=== PATIENT | female | born 1975 | race Caucasian/White ===

== ENCOUNTER 2023-01-29 07:46 | Emergency (ER) | payer SELFPAY ==
[2023-01-29] MEDS ORDERED: MINERAL OIL ENEMA 133 ML ENEMA RC ONE (08:08)
[2023-01-29 08:10] VITALS: BP 132/90; PULSE 64; RESP 18; TEMP 99.4; BMI 29.4
[2023-01-29] MEDS ORDERED: POLYETHYLENE GLYCOL (HEALTHYLAX) 3350 17 GM PACKET PO ONE (08:15)
[2023-01-29] MEDS ORDERED: ACETAMINOPHEN 500 MG TABLET (FP) PO ONE (09:00)
[2023-01-29] MEDS ORDERED: ACETAMINOPHEN 500 MG TABLET (FP) ONE (09:25)
== END 2023-01-29 10:08 | disposition home or self-care (01) ==
LOC: JER 07:46
DX: K59.00 Constipation, unspecified (principal); K64.4 Residual hemorrhoidal skin tags
CPT/HCPCS: 36415; 82272; 99283-25

== ENCOUNTER 2023-07-30 05:29 | Emergency (ER) | payer OTHER ==
[2023-07-30 05:44] VITALS: RESP 20; BMI 26.6
[2023-07-30] MEDS ORDERED: METHOCARBAMOL 500 MG TABLET ONE (06:21)
[2023-07-30] MEDS ORDERED: KETOROLAC TROMETHAMINE 30 MG/1 ML VIAL ONE (06:21)
[2023-07-30] MEDS ORDERED: LIDOCAINE 4% PATCH TP ONE (06:21)
[2023-07-30] MEDS: LIDOCAINE 4% PATCH TP ONE (06:40)
[2023-07-30] MEDS: KETOROLAC TROMETHAMINE 30 MG/1 ML VIAL IM ONE (06:40)
[2023-07-30] MEDS: METHOCARBAMOL 750 MG TABLET PO ONE (06:42)
[2023-07-30 11:03] VITALS: BP 134/81; PULSE 71; TEMP 98.6
[2023-07-30] MEDS ORDERED: LIDOCAINE PATCH REMOVAL MC ONE (18:00)
== END 2023-07-30 12:04 | disposition home or self-care (01) ==
LOC: JER 05:29
PROC: 3E0233Z Introduction of Anti-inflammatory into Muscle, Percutaneous Approach (ICD-10-PCS; principal; 2023-07-30)
DX: M54.42 Lumbago with sciatica, left side (principal)
CPT/HCPCS: 99284-25